=== PATIENT | male | born 1950 | race Caucasian/White ===

== ENCOUNTER 2017-01-24 11:21 | Emergency (ER) | payer MEDICARE, OTHER ==
[2017-01-24] MEDS ORDERED: PROPARACAINE 0.5% OPHTH DROPS 15 ML ONE (11:59)
== END 2017-01-24 12:24 | disposition home or self-care (01) ==
DX: B02.9 Zoster without complications (principal); I10 Essential (primary) hypertension; E78.00 Pure hypercholesterolemia, unspecified; Z79.82 Long term (current) use of aspirin; F17.200 Nicotine dependence, unspecified, uncomplicated
CPT/HCPCS: 99283; J3490

== ENCOUNTER 2017-01-26 09:10 | Emergency (ER) | payer MEDICARE, OTHER ==
--- NOTE | 2017-01-26 09:54 | ED Physician Documentation ---
PD HPI SKIN - Stated complaint Stated Complaint: RIGHT EYE SWOLLEN - Chief complaint Chief Complaint: Heent - History obtained from History obtained from: Patient - History of Present Illness Timing - onset: How many days ago (few days ago of rash and pain right face and scalp. Seen in ED couple days ago and Dx shingles. Told to recheck in 2-3 days, so here today. Having pain around eye. No visual changes.) Timing - duration: Days Timing - details: Gradual onset, Still present Location: Scalp (right), Face (right upper) Quality / character: Painful, Discolored (red), Vesicular Associated symptoms: No: Fever, N/V/D Recently seen: Emergency Dept Review of Systems Eyes: denies: Loss of vision, Decreased vision, Photophobia PD PAST MEDICAL HISTORY - Past Medical History Cardiovascular: Hypertension, High cholesterol Respiratory: None Neuro: None Endocrine/Autoimmune: None GI: None : None HEENT: None Psych: None Musculoskeletal: None Derm: None - Past Surgical History Past Surgical History: Yes General: Other Cardiovascular: Coronary stent - Present Medications Home Medications: Ambulatory Orders Medication Instructions Recorded Confirmed Aspirin [Shiraz Chewable Aspirin] 81 mg ORAL DAILY 01/01/16 01/26/17 Atorvastatin [Lipitor] 60 mg ORAL DAILY 01/01/16 01/26/17 Losartan [Cozaar] 50 mg ORAL DAILY 01/01/16 01/26/17 Acyclovir 800 mg PO 5XD #35 tablet 01/24/17 01/26/17 Dexamethasone [Decadron] 4 mg PO DAILY #5 tablet 01/26/17 Gabapentin 100 mg PO TID #50 capsule 01/26/17 - Allergies Allergies/Adverse Reactions: Allergies Allergy/AdvReac Type Severity Reaction Status Date / Time No Known Drug Allergies Allergy Verified 01/26/17 09:19 - Social History Does the pt smoke?: Yes Smoking Status: Current every day smoker Does the pt drink ETOH?: No Does the pt have substance abuse?: No - Immunizations Immunizations are current?: Yes PD ED PE NORMAL - Vitals Vital signs reviewed: Yes - General General: Alert and oriented X 3, Well developed/nourished, Other (obvious facial rash right upper face (periorbital, forehead) and right scalp. ) - HEENT HEENT: PERRL, EOMI, Other (flourescein testing right eye without any dye uptake. ) - Neck Neck: Supple, no meningeal sign, No adenopathy - Cardiac Cardiac: RRR, No murmur - Respiratory Respiratory: Clear bilaterally - Derm Derm: Normal color, Warm and dry - Neuro Neuro: Alert and oriented X 3, air brake man 2-12 intact, No motor deficit, Normal speech Results - Vitals Vitals: Vital Signs - 24 hr 01/26/17 01/26/17 09:17 10:36 Temperature 36.6 C Heart Rate 76 76 Respiratory 18 18 Rate Blood Pressure 147/98 H 164/95 H O2 Saturation 99 99 Oxygen O2 Source Room air PD MEDICAL DECISION MAKING - ED course Complexity details: considered differential (recheck of upper face/scalp shingles. Flourescein testing without corneal lesions. Added meds to acyclovir. ), d/w patient Departure - Departure Disposition: 01 Home, Self Care Clinical Impression: Herpes zoster Qualifiers: Herpes zoster complications: without complications Qualified Code(s): B02.9 - Zoster without complications Condition: Stable Record reviewed to determine appropriate education?: Yes Instructions: ED Shingles Follow-Up: Adalid Goode MD [Primary Care Provider] - Prescriptions: Dexamethasone [Decadron] 4 mg PO DAILY #5 tablet Gabapentin 100 mg PO TID #50 capsule Comments: Continue the Acyclovir as prescribed previously. Add Decadron for nerve inflammation and gabapentin to help with nerve irritation. Continue the Advil for pain and can add Tylenol to it as needed. Recheck with PMD in about a week, call for appt. Discharge Date/Time: 01/26/17 10:36
[2017-01-26] MEDS ORDERED: PROPARACAINE 0.5% OPHTH DROPS 15 ML EACHEYE STA (10:07)
[2017-01-26] MEDS ORDERED: PROPARACAINE 0.5% OPHTH DROPS 15 ML ONE (10:09)
[2017-01-26] MEDS ORDERED: DEXAMETHASONE 10 MG/ML VIAL PO STA (10:30)
[2017-01-26] MEDS ORDERED: CHERRY SYRUP 10 ML UDC PO ONE (10:30)
[2017-01-26] MEDS ORDERED: DEXAMETHASONE 10 MG/ML VIAL ONE (10:31)
[2017-01-26 10:36] VITALS: BP 164/95
== END 2017-01-26 10:36 | disposition home or self-care (01) ==
LOC: ED 09:10
DX: B02.9 Zoster without complications (principal); I10 Essential (primary) hypertension; F17.200 Nicotine dependence, unspecified, uncomplicated; Z95.5 Presence of coronary angioplasty implant and graft; Z79.82 Long term (current) use of aspirin
CPT/HCPCS: 99283; A9270; J3490

== ENCOUNTER 2019-02-08 06:40 | Outpatient (CLI) | payer MEDICARE, OTHER ==
--- NOTE | 2019-02-08 09:22 | Ultrasound Report ---
Reason: NICOTINE DEPENDENCE,UNSPECIFIED UNCOMPLICATED Procedure Date: 02/08/2019 Accession Number: [id number] / [id number] Procedure: US - Aorta Screening CPT Code: FULL RESULT: EXAM: AORTIC DOPPLER ULTRASOUND EXAM DATE: 02/08/2019 07:16 AM. CLINICAL HISTORY: Nicotine dependence, unspecified uncomplicated. COMPARISON: None. TECHNIQUE: Real-time sonographic imaging of retroperitoneal vascular structures, including color-flow, Doppler flow and spectral analysis was performed by the lending advisor. Multiple sales representative groceries static images were saved for review. FINDINGS: Aorta: The abdominal aorta was adequately visualized. No evidence for abdominal aortic aneurysm. Mild to moderate amount of atherosclerosis is identified subjectively. Aorta: Proxima: Sagittal AP 2.5 cm. Mid: Transverse 2.0 x 2.2 cm. Distal: Transverse 1.9 x 2.0 cm. Iliacs: Right Iliac: Transverse 1.3 x 1.2 cm. Left Iliac: Transverse 1.3 x 1.3 cm. Iliac Vessels: The visualized proximal common iliac arteries are normal in caliber. Other: None. IMPRESSION: No abdominal aortic aneurysm. RADIA
== END 2019-02-08 06:41 | disposition home or self-care (01) ==
LOC: DI 06:40
PROVIDERS: ATTEND Family Medicine
DX: Z13.6 Encounter for screening for cardiovascular disorders (principal); F17.200 Nicotine dependence, unspecified, uncomplicated
CPT/HCPCS: 76706

== ENCOUNTER 2019-06-03 14:01 | Emergency (ER) | payer MEDICARE, OTHER ==
[2019-06-03 14:21] LABS: BASOPHILS % (AUTO) 0.5 %; EOSINOPHILS # (AUTO) 0.1 10^3/uL (0.0-0.7); EOSINOPHILS % (AUTO) 1.5 %; HGB - HEMOGLOBIN 13.5 g/dL (14.0-18.0); LYMPHOCYTES # (AUTO) 1.4 10^3/uL (1.5-3.5); LYMPHOCYTES % (AUTO) 18.7 %; MEAN CORPUSCULAR HEMOGLOBIN 32.8 pg (27.0-31.0); MEAN CORPUSCULAR HGB CONC 33.2 g/dL (32.0-36.0); MEAN PLATELET VOLUME 9.9 fL (7.4-11.4); MONOCYTES # (AUTO) 0.4 10^3/uL (0.0-1.0); MONOCYTES % (AUTO) 5.9 %; NEUTROPHILS # (AUTO) 5.3 10^3/uL (1.5-6.6); PLT - PLATELET COUNT 183 10^3/uL (130-450); RED BLOOD COUNT 4.11 10^6/uL (4.70-6.10); RED CELL DISTRIBUTION WIDTH 13.7 % (12.0-15.0); WHITE BLOOD COUNT 7.3 x10^3/uL (4.8-10.8)
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
--- NOTE | 2019-06-03 14:34 | XRAY Report ---
Reason: CP Procedure Date: 06/03/2019 Accession Number: [id number] / [id number] Procedure: XR - Chest 1 View X-Ray CPT Code: 66581 FULL RESULT: EXAM: CHEST RADIOGRAPHY EXAM DATE: 06/03/2019 02:21 PM. CLINICAL HISTORY: Chest pain. COMPARISON: CHEST 2 VIEW PA/LAT 01/01/2016 1:11 PM. TECHNIQUE: 1 view. FINDINGS: Cardiac leads overlie the chest. Heart size is normal. Tiny calcified plaques in the thoracic aorta. No consolidation, pleural effusion, or pneumothorax. IMPRESSION: No acute cardiopulmonary findings. RADIA
[2019-06-03 14:39] LABS: ALBUMIN 3.9 g/dL (3.2-5.5); ALBUMIN/GLOBULIN RATIO 1.4 (1.0-2.2); BILIRUBIN,TOTAL 0.7 mg/dL (0.2-1.0); CREATININE 0.9 mg/dL (0.6-1.2); TOTAL PROTEIN 6.7 g/dL (6.7-8.2)
[2019-06-03 14:43] LABS: TROPONIN I < 0.04 ng/mL (<0.49)
[2019-06-03 15:02] VITALS: BP 154/103
== END 2019-06-03 15:09 | disposition home or self-care (01) ==
LOC: ED 14:01
DX: K21.9 Gastro-esophageal reflux disease without esophagitis (principal); I10 Essential (primary) hypertension; F17.200 Nicotine dependence, unspecified, uncomplicated
CPT/HCPCS: 36415; 71045; 80053; 83690; 84484; 85025; 93005; 99283; 99284

== ENCOUNTER 2019-11-04 10:23 | Outpatient (CLI) | payer MEDICARE, OTHER ==
--- NOTE | 2019-11-05 09:16 | XRAY Report ---
Reason: PAIN IN RIGHT KNEE Procedure Date: 11/04/2019 Accession Number: [id number] / [id number] Procedure: XRS - Knee 3 View RT CPT Code: Final Report FULL RESULT: EXAM: RIGHT KNEE RADIOGRAPHY EXAM DATE: 11/04/2019 10:43 AM. CLINICAL HISTORY: PAIN IN RIGHT KNEE. COMPARISON: None. TECHNIQUE: 3 views. FINDINGS: Bones: Normal. No fractures or bone lesions. Joints: Amorphous calcifications are noted in the right lateral knee joint compatible with chondrocalcinosis. Moderate knee joint effusion. No dislocation or subluxation is noted. Tricompartment right knee joint space narrowing is noted. Soft Tissues: Possible mild prepatellar swelling. IMPRESSION: 1. No acute fracture or malalignment. 2. Moderate knee joint effusion. Chondrocalcinosis. No subluxation. RADIA
== END 2019-11-04 10:24 | disposition home or self-care (01) ==
LOC: DI.S 10:23
PROVIDERS: ATTEND Nurse Practitioner Family
DX: M25.461 Effusion, right knee (principal); M11.261 Other chondrocalcinosis, right knee

== ENCOUNTER 2020-03-22 10:28 | Outpatient (CLI) | payer MEDICARE, OTHER ==
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
== END 2020-03-22 10:29 | disposition home or self-care (01) ==
LOC: DI 10:28
PROVIDERS: ATTEND Family Medicine
DX: M17.12 Unilateral primary osteoarthritis, left knee (principal); M79.5 Residual foreign body in soft tissue

== ENCOUNTER 2021-04-22 16:42 | Outpatient (CLI) | payer MEDICARE, OTHER | END 2021-04-22 16:43 | disposition home or self-care (01) | LOC: COV 16:42 | PROVIDERS: ATTEND Family Medicine | DX: R09.81 Nasal congestion (principal); J34.89 Other specified disorders of nose and nasal sinuses; Z20.822 Contact with and (suspected) exposure to COVID-19 ==

== ENCOUNTER 2021-05-29 10:10 | Outpatient (CLI) | payer MEDICARE, OTHER ==
--- NOTE | 2021-05-29 10:44 | XRAY Report ---
PROCEDURE: Knee 3 View LT INDICATIONS: PAIN IN LEFT KNEE TECHNIQUE: 3 views of the left knee(s) were acquired. COMPARISON: None. FINDINGS: Bones: No fractures or dislocations. No suspicious bony lesions. Mild tricompartmental osteoarthri tis is seen more prominent in medial femoral tibial compartment. Soft tissues: No joint effusion. No suspicious soft tissue calcifications. Metallic density is see n within soft tissue over posterior aspect of left knee suggest clinical correlation. IMPRESSION: 1. Mild tricompartment osteoarthritis in left knee more prominent in medial femoral tibial compartmen t. 2. Possible foreign body in soft tissue over posterior aspect of left knee as above suggest clinical correlation. Reviewed by: Zia Dacosta MD on 05/29/2021 10:43 AM PDT Approved by: Zia Dacosta MD on 05/29/2021 10:43 AM PDT Station ID: [id number]
== END 2021-05-29 10:11 | disposition home or self-care (01) ==
LOC: DI.S 10:10
PROVIDERS: ATTEND Family Medicine
DX: M17.12 Unilateral primary osteoarthritis, left knee (principal); R93.6 Abnormal findings on diagnostic imaging of limbs; R93.89 Abnormal findings on diagnostic imaging of other specified body structures

== ENCOUNTER 2022-01-22 08:51 | Outpatient (CLI) | payer MEDICARE, OTHER ==
[2022-01-22 09:51] LABS: ALBUMIN 4.3 g/dL (3.2-5.5); ALBUMIN/GLOBULIN RATIO 1.4 (1.0-2.2); ALKALINE PHOSPHATASE 63 IU/L (42-121); ALT ALANINE AMINOTRANSFERASE 19 IU/L (10-60); AST ASPARTATE AMINOTRANSFERASE 16 IU/L (10-42); BILIRUBIN,TOTAL 0.8 mg/dL (0.2-1.0); BUN - BLOOD UREA NITROGEN 17 mg/dL (6-20); CALCIUM 9.2 mg/dL (8.5-10.3); CARBON DIOXIDE - CO2 25 mmol/L (21-32); CHLORIDE 105 mmol/L (101-111); CHOL/HDL RATIO 3.5 (<5.0); CHOLESTEROL 136 mg/dL; GFR - MDRD 73 (>89); GLUCOSE 119 mg/dL (70-100); HDL CHOLESTEROL 39 mg/dL; LDL CHOLESTEROL,CALCULATED 82 mg/dL; LDL/HDL RATIO 2.1 (<3.6); POTASSIUM 4.1 mmol/L (3.5-5.0); SODIUM 139 mmol/L (135-145); TOTAL PROTEIN 7.3 g/dL (6.7-8.2); TRIGLYCERIDES 74 mg/dL; VLDL CHOLESTEROL 15 mg/dL
== END 2022-01-22 08:52 | disposition home or self-care (01) ==
LOC: LAB 08:51
PROVIDERS: ATTEND Physician Assistant
DX: E78.5 Hyperlipidemia, unspecified (principal); I10 Essential (primary) hypertension
CPT/HCPCS: 36415; 80053; 80061; 83721

== ENCOUNTER 2023-07-28 08:54 | Outpatient (CLI) | payer MEDICARE, OTHER ==
--- NOTE | 2023-07-28 15:31 | CT Report ---
PROCEDURE: Low Dose Lung Cancer Screen INDICATIONS: SMOKER TECHNIQUE: A CT scan of the chest was performed. Intravenous contrast media was not administered. Images were re corded and evaluated at appropriate window settings. Reformats: axial MIP of the chest, coronal and s agittal. For radiation dose reduction, the following was used: automated exposure control, adjustment of mA and/or kV according to patient size. COMPARISON: None. FINDINGS: Image quality: Excellent. Lungs and pleura: No pleural effusions. No pneumothorax. Right middle lobe 3 mm nodule on image /13 9. Mild central bronchial wall thickening noted bilaterally. Mediastinum: Heart size is normal. No pericardial effusion. No large vessel abnormality. No mediastin al adenopathy by size criteria. Chest wall and lower neck: Thyroid is unremarkable. No axillary or supraclavicular adenopathy by size . Bones: No aggressive osseous abnormality. Upper Abdomen: Unremarkable. IMPRESSION: Benign right middle lobe 3 mm nodule. Lung RAD: 2 - Benign. Recommendation: Continue annual screening Non-Lung Significant Findings: Smooth bronchial wall thickening centrally may reflect chronic bronchi tis Reviewed by: Michael Breen MD on 07/28/2023 2:30 PM AKDT Approved by: Michael Breen MD on 07/28/2023 2:30 PM AKDT Station ID: [id number]
== END 2023-07-28 08:55 | disposition home or self-care (01) ==
LOC: DI 08:54
PROVIDERS: ATTEND Physician Assistant
DX: Z12.2 Encounter for screening for malignant neoplasm of respiratory organs (principal); F17.210 Nicotine dependence, cigarettes, uncomplicated; R91.1 Solitary pulmonary nodule